=== PATIENT | female | born 1950 | race Caucasian/White ===

== ENCOUNTER → 2018-02-18 06:58 | Outpatient (CLI) | payer OTHER, SELFPAY ==
--- NOTE | 2018-02-18 | DI.MRI.S_ITS ---
PROCEDURE: MR LUMBAR SPINE WO CON INDICATIONS: RIGHT DONNY PAIN TECHNIQUE: Noncontrast sagittal T1 spin echo and T2 fast echo, sagittal STIR, axial T1 and T2 fast spin echo through the lumbar spine. In cases with scoliosis, additional coronal T2 fast spin echo may be performed. COMPARISON: [facility], , L-SPINE WITHOUT CONTRAST, 05/29/2016, 10:19. [facility] [place], CR, SPINE LUMB 6+VW, 05/14/2015, 15:31. FINDINGS: Image quality: Excellent. Alignment and Curvature: 5 lumbar type vertebral bodies are present by plain film. There is loss of normal lumbar lordosis, as well as mild grade 1 retrolisthesis of L5 on S1, and otherwise normal bony alignment. Bone Marrow: Marrow is of normal overall signal. No acute vertebral body compression fractures. There is mild reactive signal within the endplates adjacent to the T11-T12, and T12-L1, and L2-L3 intervertebral discs. Moderate reactive signal within the implant adjacent to the L4-L5 and L5-S1 intervertebral discs. Spinal Cord: Conus medullaris terminates at the mid L2 level. 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 Visualized cord demonstrates normal signal and size. Paraspinous Soft Tissues: No paravertebral masses. L1-L2: Mild diffuse disc bulge. Minimal facet hypertrophy. No significant canal, nor foraminal stenosis. No change. L2-L3: Mild disc desiccation with small superimposed broad-based left lateral protrusion. Mild facet hypertrophy. No significant canal stenosis. Mild left and no right foraminal stenosis. No change. L3-L4: Mild disc desiccation. Mild bilateral facet hypertrophy. No significant canal, nor foraminal stenosis. No change. L4-L5: Moderate disc desiccation and disc height loss. Mild diffuse disc bulge. Mild facet hypertrophy bilaterally. Mild canal stenosis. Mild foraminal stenosis bilaterally. No change. L5-S1: Moderate disc height loss and desiccation, and mild diffuse disc bulge with superimposed small broad-based left for lateral protrusion/osteophyte. Mild bilateral facet hypertrophy. Mild canal stenosis. Mild left greater than right foraminal stenosis. No change. IMPRESSION: 1. No significant change in multilevel degenerative disc and facet disease. 2. No change in mild multilevel canal stenoses and mild multilevel foraminal stenoses. 3. 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 4. No evidence of neural impingement. Dictated by: Lauryn Kennedy M.D. on 02/18/2018 at 11:26 Approved by: Lauryn Kennedy M.D. on 02/18/2018 at 11:32
--- NOTE | 2018-02-18 | DI.MRI.S_ITS ---
PROCEDURE: MR HIP RT WO CON INDICATIONS: RIGHT GROIN PAIN TECHNIQUE: Noncontrast coronal T1 spin echo and STIR through the bony pelvis. Coronal and axial T2 fast spin echo with fat saturation, sagittal T1 spin echo, and oblique axial T2 fast spin echo with fat saturation through the hip. COMPARISON: [facility] [place], CR, XR PELVIS W LATERAL HIP RT, 05/20/2016, 8:20. FINDINGS: Image quality: Excellent. Bones and joints: Bone marrow of the pelvic ring and proximal femurs show normal signal throughout. Mild josue-articular osteophyte formation of the bilateral hip joints. No intraosseous lesions or fractures. No avascular necrosis of the femoral heads. The visualized lower lumbar spine appears normally aligned. Small right hip joint effusion. Tendons and ligaments: The gluteus medius and minimus tendons appear intact, without associated muscle atrophy. Mild ill-defined T2 signal elevation adjacent to the femoral insertion sites of the bilateral gluteus medius and minimus tendons is present. The nearby proximal iliotibial band also appears intact. The iliopsoas tendon appears intact, and demonstrates a small amount of fluid along its course. The. The origin of the hamstring tendon is intact at the ischial tuberosity, as well as the associated sacrotuberous ligament. The straight and reflected heads of the rectus femoris muscle origin appear intact, as well as the conjoint tendon. The ligamentum teres appears intact where visualized. Labrum and cartilage: Multiple high T2 signal intensity foci within the anterosuperior labrum and within the posterior labrum are present, consistent with labral tearing. Cartilage surface of the femoral head appears of normal thickness. The alpha angle of the femur is within normal limits at less than 55 degrees. Soft tissues: Visualized muscles demonstrate normal bulk and internal signal. Quadratus femoris muscle demonstrates no internal edema to suggest ischiofemoral impingement. The proximal sciatic neurovascular bundle appears normal adjacent to the hamstring tendons. No free pelvic fluid. Bladder wall thickness is normal. Genitourinary structures and bowel loops appear normal where visualized. IMPRESSION: 1. Right hip labral tearing. 2. Mild hip osteoarthritis bilaterally. Right hip joint effusion. 3. Mild insertional tendinitis of the bilateral gluteus medius and minimus tendons. 4. Right iliopsoas bursitis. Dictated by: Lauryn Kennedy M.D. on 02/18/2018 at 10:50 Approved by: Lauryn Kennedy M.D. on 02/18/2018 at 10:55
== END ==
PROVIDERS: Family Provider Physician Assistant Medical; PCP Physician Assistant Medical; Visit Provider Physician Assistant Medical
DX: M51.36 Other intervertebral disc degeneration, lumbar region (principal); M48.061 Spinal stenosis, lumbar region without neurogenic claudication; D17.79 Benign lipomatous neoplasm of other sites
CPT/HCPCS: 72148; 73721

== ENCOUNTER 2018-09-03 13:12 | Emergency (ER) | payer OTHER, SELFPAY ==
[2018-09-03 13:15] VITALS: BP 133/86; PULSE 62; RESP 14; TEMP 36.4; O2SAT 98
--- NOTE | 2018-09-03 13:28 | DI.RAD.S_ITS ---
PROCEDURE: XR CHEST 1V INDICATIONS: chest pain TECHNIQUE: One view of the chest was acquired. COMPARISON: [facility], , CHEST 2 VIEW, 08/30/2014, 15:03. FINDINGS: Surgical changes and devices: None. Lungs and pleura: Right hilar fullness is new since the prior exam. Interstitial prominence within the lung bases is slightly more prominent on the current study. No lobar consolidation, large effusion, or pneumothorax is evident. Mediastinum: Mediastinal contours appear normal. Heart size is normal. Bones and chest wall: No suspicious bony lesions. Overlying soft tissues appear unremarkable. IMPRESSION: 1. Right hilar fullness may be related to overlying vessels. However, the possibility of a hilar mass or lymphadenopathy is difficult to exclude. Contrast enhanced CT of the chest is recommended for further evaluation. 2. Probable scarring and atelectasis within the lung bases. Dictated by: Jann Sanches M.D. on 09/03/2018 at 12:50 Approved by: Jann Sanches M.D. on 09/03/2018 at 12:59
[2018-09-03 13:35] LABS: Add Manual Diff / Slide Review NO; Basophils Absolute Auto 100 /uL (0-100); Eosinophils Absolute Auto 100 /uL (0-450); Eosinophils Percent Auto 1.7 % (2-4); Hematocrit 44.6 % (36-46); Hemoglobin 14.9 g/dL (12.0-16.0); Lymphocytes Absolute Auto 2400 /uL (1100-4500); Lymphocytes Percent Auto 34.3 % (25-40); Mean Corpuscular HGB Conc 33.5 % (30-36); Mean Corpuscular Hemoglobin 31.4 PG (26-34); Mean Corpuscular Volume 93.6 fL (80-100); Monocytes Absolute Auto 600 /uL (0-900); Monocytes Percent Auto 8.8 % (3-14); Neutrophils Absolute Auto 3800 /uL (1500-7000); Neutrophils Percent Auto 54.2 % (50-75); Platelet Count 218 X10^3/uL (150-400); Red Blood Cell Count 4.76 X10^6/uL (4.0-5.2)
[2018-09-03 13:39] LABS: Prothrombin Time 11.5 SECONDS (10.1-12.7)
[2018-09-03 13:42] LABS: PTT Partial Thromboplastin Tim 30 SECONDS (26.4-36.2)
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
[2018-09-03 13:51] LABS: Alanine Aminotransferase 45 IU/L (9-52); Albumin 4.5 g/dL (3.5-5.0); Albumin Globulin Ratio 1.4 (1.0-2.8); Alkaline Phosphatase 58 U/L (38-126); Aspartate Aminotransferase 33 IU/L (14-36); BUN Creatinine Ratio 17.5 (6-22); Bilirubin Total 0.3 mg/dL (0.2-1.3); Blood Urea Nitrogen 14 mg/dL (7-17); Calcium 9.4 mg/dL (8.4-10.2); Carbon Dioxide 25 mmol/L (22-32); Chloride 104 mmol/L (98-107); Creatine Kinase 128 U/L (30-135); Estimated Glomerular Filt Rate > 60.0 mL/min (>60); Globulin 3.2 g/dL (1.7-4.1); Glucose 86 mg/dL (80-110); HEMOLYSIS 20 (0-50); Lipase 88 U/L (23-300); Potassium 3.9 mmol/L (3.4-5.1); Sodium 140 mmol/L (137-145); Total Protein 7.7 g/dL (6.3-8.2)
[2018-09-03 13:52] VITALS: BP 135/83; PULSE 60; RESP 16; O2SAT 96
[2018-09-03 14:00] VITALS: BP 129/87; PULSE 61; RESP 11; O2SAT 98
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
[2018-09-03 14:02] LABS: Troponin I < 0.012 ng/mL (0.01-0.034)
[2018-09-03 14:16] LABS: CKMB % Relative Index 1.3 % (1.5-5.0); Creatine Kinase MB 1.64 ng/mL (<2.37)
[2018-09-03 14:30] VITALS: BP 118/94; PULSE 65; RESP 17; O2SAT 98
[2018-09-03 15:08] VITALS: BP 126/80; PULSE 61; RESP 23; O2SAT 98
== END 2018-09-03 15:10 | disposition home or self-care (01) ==
PROVIDERS: Emergency Medicine; Emergency Provider Internal Medicine; PCP Physician Assistant Medical
DX: R07.89 Other chest pain (principal)
CPT/HCPCS: 36591; 71045; 80053; 82550; 82553; 83690; 84484; 85025; 85610; 85730; 93005; 99283; 99285

== ENCOUNTER → 2018-09-24 08:01 | Outpatient (CLI) | payer OTHER, SELFPAY ==
--- NOTE | 2018-09-24 09:18 | PM.TREADMILL ---
Cardiac Stress Test Report Referral & Results Date Patient Seen: 09/24/18 Requesting provider: Rhonda Colbert Indication: Chest pain, ER visit Rest ECG: Unremarkable Procedure Note: After both written and verbal informed consent the patient had an IV started by the diagnostic imaging RN and then was hooked up to the treadmill monitoring system. The patient was placed on the treadmill at 1 mile an hour with no elevation and was then injected with the Ledy scan material. The Cardiolite was then immediately administered. The patient spent an additional 2-3 minutes on the treadmill before being returned to the [facility] in the supine position. The patient had a normal response to all infused materials. There was a tremendous amount of electrical artifact while patient was moving a prevented any interpretation of anything beyond basic rhythm assessment Impression: Normal response to materials as above Please see perfusion imaging report for details regarding possible ischemia Please note: Actual ECG tracings can be found in the PACS system.
--- NOTE | 2018-09-28 08:06 | DI.NM.S_ITS ---
DATE OF SERVICE: 09/24/2018 PROCEDURE: Pharmacological perfusion study. INDICATIONS: Chest pain with underling morbid obesity. RADIOPHARMACEUTICAL: 25.1 mCi technetium-99m Myoview IV was injected at stress, and 27.2 mCi technetium-99m Myoview IV was injected at rest. CARDIAC STRESS: Patient underwent Lexiscan perfusion scan under the supervision of an attending staff using standard IV Lexiscan as per protocol. She remained hemodynamically stable. No significant symptoms reported. Baseline EKG revealed sinus rhythm. During stress, there were significant artifacts. In recovery, there were no convincing ischemic changes or significant arrhythmias. RAW DATA: There was breast shadow seen. Patient's weight is 230 pounds. GATED STUDY: Stress LV ejection fraction 78%. No obvious wall motion abnormalities. Resting end-diastolic volume 83 mL. No transient ischemic dilatation. TID ratio 1.0, which is within normal limits. Lung/heart ratio 0.35, which is within normal limits. MYOCARDIAL PERFUSION: Stress supine, resting supine, and stress prone images were compared to each other. Stress supine and resting supine images revealed small-sized mildly decreased perfusion of distal anterior septum as well as anterior wall, which got significantly improved during prone images, suggestive of breast tissue attenuation artifact. I don't see any convincing ischemia or infarction. CONCLUSION: 1. I will call this study likely a normal myocardial perfusion study with evidence of breast tissue attenuation artifact which got improved during prone images. Overall stress LV ejection fraction 78%. No transient ischemic dilatation. Lung/heart ratio is normal. Overall, this is a low-risk myocardial perfusion scan. AndresSybil - DEPARTMENT CLINICIAN/fn/kv doc#: [id number]/job#: [id number] dd: 09/27/2018 16:50:00 dt: 09/28/2018 04:30:00 DICTATING MD/COPIES TO: Galindo Toth MD COPIES MNE: ALFREDO
== END ==
PROVIDERS: Family Provider Physician Assistant Medical; PCP Physician Assistant Medical; Visit Provider Physician Assistant
DX: R07.9 Chest pain, unspecified (principal); E66.01 Morbid (severe) obesity due to excess calories
CPT/HCPCS: 36415; 78452; 80048; 84443; 93016; 93017; 93018; A9502; J2785

== ENCOUNTER → 2018-09-24 10:05 | Outpatient (CLI) | payer OTHER, SELFPAY ==
[2018-09-24 12:42] LABS: BUN Creatinine Ratio 21.3 (6-22); Blood Urea Nitrogen 17 mg/dL (7-17); Calcium 9.2 mg/dL (8.4-10.2); Carbon Dioxide 25 mmol/L (22-32); Chloride 105 mmol/L (98-107); Estimated Glomerular Filt Rate > 60.0 mL/min (>60); Glucose 123 mg/dL (80-110); HEMOLYSIS < 15 (0-50); Sodium 139 mmol/L (137-145)
[2018-09-24 13:18] LABS: TSH w/ Reflex to FT4 1.45 uIU/mL (0.47-4.68)
== END ==
PROVIDERS: Family Provider Physician Assistant Medical; PCP Physician Assistant Medical; Visit Provider Physician Assistant
DX: R07.9 Chest pain, unspecified (principal); R91.8 Other nonspecific abnormal finding of lung field; E03.9 Hypothyroidism, unspecified
CPT/HCPCS: 36415; 80048; 84443

== ENCOUNTER → 2018-09-27 09:02 | Outpatient (CLI) | payer OTHER, SELFPAY ==
--- NOTE | 2018-09-27 | DI.CT.S_ITS ---
PROCEDURE: CT CHEST W CON INDICATIONS: ABNORMAL CHEST XRAY TECHNIQUE: After the administration of intravenous contrast, 5 mm thick sections acquired from the pulmonary apices to the posterior costophrenic angles. 7 mm thick coronal and sagittal MIP reformats were acquired. For radiation dose reduction, the following was used: automated exposure control, adjustment of mA and/or kV according to patient size. COMPARISON: [facility], , XR CHEST 1V, 09/03/2018, 13:39. FINDINGS: Image quality: Excellent. Lungs and pleura: No acute air space opacities. No pleural effusions or pneumothorax. Central and peripheral airways are patent and normal in caliber. Mediastinum: In this patient with this given history, scrutiny is given to the right suprahilar region. Within this region, no masses are seen. Normal vascular structures are seen, which lead to the appearance of fullness on the recent chest x-ray. Heart size is at the upper limits of normal. No pericardial effusion. No mediastinal or hilar adenopathy by size criteria. Thoracic aorta and central pulmonary arteries are normal in size. Incidental note is made of a proximal origin of the left vertebral artery, as on series 2 image 14. This is considered to be a developmental variant of likely no clinical consequence. Esophagus is normal in caliber. No hiatal hernia. Bones and chest wall: No suspicious bony lesions. Age-appropriate bony degenerative changes are seen. No vertebral body compression fractures. No axillary or supraclavicular adenopathy by size criteria. Thyroid gland demonstrates no significant CT abnormality. Abdomen: The gallbladder has been removed. A small accessory spleen is seen inferior to the primary spleen. The visualized portions of the upper abdominal structures are otherwise unremarkable for imaging technique. IMPRESSION: No mediastinal masses are seen. Normal vascular structures are seen within the right suprahilar region. Incidental note is made of: Proximal origin of the left vertebral artery Cholecystectomy Accessory spleen Cardiac size at the upper limits of normal Dictated by: Zachariah Thomas M.D. on 09/27/2018 at 9:27 Approved by: Zachariah Thomas M.D. on 09/27/2018 at 9:30
== END ==
PROVIDERS: Family Provider Physician Assistant Medical; PCP Physician Assistant Medical; Visit Provider Physician Assistant
DX: R93.89 Abnormal findings on diagnostic imaging of other specified body structures (principal); Q89.09 Congenital malformations of spleen; Z90.49 Acquired absence of other specified parts of digestive tract
CPT/HCPCS: 71260

== ENCOUNTER → 2020-02-06 09:09 | Outpatient (CLI) | payer OTHER, SELFPAY ==
--- NOTE | 2020-02-06 09:12 | DI.MRI.S_ITS ---
PROCEDURE: MR LUMBAR SPINE WO CON INDICATIONS: Lumbar foraminal stenosis with right lower extremity symptom TECHNIQUE: Noncontrast sagittal T1 spin echo and T2 fast echo, sagittal STIR, axial T1 and T2 fast spin echo through the lumbar spine. In cases with scoliosis, additional coronal T2 fast spin echo may be performed. COMPARISON: [facility], MR, MR LUMBAR SPINE WO CON, 02/18/2018, 7:57. FINDINGS: Image quality: Excellent. Alignment and Curvature: There is normal bony alignment. Bone Marrow: Reactive endplate change is noted adjacent to the L4-L5 and L5-S1 discs. No acute vertebral body compression fractures. Spinal Cord: Conus medullaris terminates at the L2 level. 0.5 x 0.5 x 3.0 cm lipoma of the filum terminale noted. Visualized cord demonstrates normal signal and size. Paraspinous Soft Tissues: No paravertebral masses. L1-L2: Loss of the signal. Mild, diffuse disc bulge. No central stenosis. No neural foraminal narrowing. No neural compression. L2-L3: Loss of the signal. Mild, diffuse disc bulge. No central stenosis. No neural foraminal narrowing. No neural compression. Fissure is noted in the posterior and left foraminal annulus. L3-L4: Loss of disc signal. Mild bilateral facet hypertrophy. No central stenosis. No neural foraminal narrowing. No neural compression. L4-L5: Loss of disc signal and height. Mild, diffuse disc bulge. Mild to moderate bilateral facet hypertrophy. Mild narrowing of the central canal. Mild bilateral neural foraminal narrowing. No neural compression. L5-S1: Loss of disc signal and height. Mild, diffuse disc bulge. Small central disc protrusion. Mild bilateral facet hypertrophy. Mild narrowing of the central canal. Mild bilateral neural foraminal narrowing. No neural compression. IMPRESSION: 1. Multilevel degenerative disease. 2. Multilevel facet arthropathy. 3. Mild L4-L5 and L5-S1 central canal narrowing. 4. Mild bilateral L4-L5 and L5-S1 neural foraminal narrowing. 5. No neural compression. 6. L2-L3 disc annulus fissures. Dictated by: Candida Dey MD, PhD on 02/06/2020 at 10:46 Approved by: Candida Dey MD, PhD on 02/06/2020 at 10:51
== END ==
PROVIDERS: Family Provider Physician Assistant Medical; PCP Physician Assistant Medical; Referring Provider Physical Medicine & Rehabilitation; Visit Provider Physical Medicine & Rehabilitation
DX: M99.83 Other biomechanical lesions of lumbar region (principal); G57.11 Meralgia paresthetica, right lower limb; M51.36 Other intervertebral disc degeneration, lumbar region; M48.061 Spinal stenosis, lumbar region without neurogenic claudication; M47.816 Spondylosis without myelopathy or radiculopathy, lumbar region; M47.817 Spondylosis without myelopathy or radiculopathy, lumbosacral region; M48.07 Spinal stenosis, lumbosacral region; Z96.649 Presence of unspecified artificial hip joint
CPT/HCPCS: 72148

== ENCOUNTER → 2020-02-23 11:17 | Outpatient (CLI) | payer OTHER, SELFPAY | PROVIDERS: Family Provider Physician Assistant Medical; PCP Physician Assistant Medical; Referring Provider Physician Assistant Medical; Visit Provider Physician Assistant Medical | DX: G57.11 Meralgia paresthetica, right lower limb (principal); Z96.649 Presence of unspecified artificial hip joint; M99.83 Other biomechanical lesions of lumbar region | CPT/HCPCS: 95886; 95912 ==

== ENCOUNTER 2020-03-29 08:44 | Outpatient (CLI) | payer OTHER, SELFPAY | END 2020-03-29 14:41 | disposition home or self-care (01) | LOC: PHYS 08:44 | PROVIDERS: Family Provider Physician Assistant Medical; PCP Physician Assistant Medical; Referring Provider Physical Medicine & Rehabilitation; Visit Provider Physical Medicine & Rehabilitation | DX: G57.11 Meralgia paresthetica, right lower limb (principal) | CPT/HCPCS: 95907 ==

== ENCOUNTER → 2025-03-07 13:41 | Outpatient (CLI) | payer OTHER, SELFPAY ==
--- NOTE | 2025-03-07 13:42 | DI.NM.S_ITS ---
PROCEDURE: NM JAYY PERF SPECT REST & STR Rest and exercise myocardial perfusion SPECT with gated imaging and ejection fraction RADIOPHARMACEUTICAL: 26.6 mCi Tc-99m sestamibi IV at rest and 27.4 mCi Tc-99m sestamibi IV at peak exercise. A two day-protocol was performed. INDICATIONS: chest pain TECHNIQUE: Radiopharmaceutical was injected at peak stress test, and also at rest. SPECT images were obtained. SPECT myocardial perfusion images were displayed in short axis, horizontal long axis, and vertical long axis views. Gated images were reviewed using shenzhoufu software. COMPARISON: None. CARDIAC STRESS: A standard Sam treadmill exercise tolerance test was performed by the patient under the supervision of an attending staff. The patient exercised for 5 minutes and 30seconds; functional aerobic impairment (FREDIS) is -6%. Hemodynamic data: There is normal blood pressure and heart rate response to exercise stress. Patient achieved 92% of maximum predicted heart rate at peak exercise. Symptoms: Patient denied chest pain during exercise. EKG: No diagnostic EKG changes of ischemia; rare PACs. FINDINGS: Raw data: There is good myocardial labeling by radiotracer. No significant motion artifacts. Left ventricle function: Gated images demonstrate normal left ventricle wall thickening. No segmental wall motion abnormality. No transient ischemic dilation; TID is 0.7 (normal less than 1.3). The left ventricle resting end-diastolic volume is 70 mL. Left ventricle stress ejection fraction is 71%; normal values are above 45%. Myocardial perfusion: There is normal distribution of activity in the left and right ventricular myocardium on stress prone images. No fixed or reversible perfusion defects. IMPRESSION: Low risk, normal treadmill nuclear stress test from inducible ischemia standpoint. 1) No perfusion evidence of ischemia or infarction. 2) Normal left ventricular size, wall motion, and systolic function (EF post stress 71%). 3) No diagnostic ST changes during exercise or recovery. 4) No angina during the study. 5) Mildly above average exercise tolerance (7.0METs, FREDIS -6%). Target heart rate reached. Appropriate BP response to exercise. 6) Compared to the nuclear stress test done 09/24/2018, no significant change. Dictated by: Garcia Huang MD on 03/09/2025 at 14:33 Approved by: Garcia Huang MD on 03/09/2025 at 14:37
== END ==
PROVIDERS: Family Provider Physician Assistant Medical; PCP Physician Assistant Medical; Referring Provider Physician Assistant Medical; Visit Provider Physician Assistant Medical
DX: R07.9 Chest pain, unspecified (principal)
CPT/HCPCS: 78452; 93017; A9502